=== PATIENT | female | born 1995 | race African-American/Black ===

== ENCOUNTER 2018-03-14 12:22 | Emergency (ER) | payer SELFPAY ==
[2018-03-14] MEDS ORDERED: ONDANSETRON 4 MG/2 ML VIAL ONE (13:04)
[2018-03-14] MEDS ORDERED: NA CHLORIDE 0.9% 500 ML ONE (13:05)
[2018-03-14 13:35] LABS: Bicarbonate 26 mEq/L (21-31); Glucose Level 172 mg/dL (65-120); Lipase 21 U/L (22-51); Potassium 3.5 mEq/L (3.6-5.0); Sodium Level 136 mEq/L (135-145)
[2018-03-14 13:42] LABS: ALT/SGPT 20 IU/L (10-60); AST/SGOT 20 IU/L (10-42); Albumin 3.8 g/dL (3.2-5.5); Alkaline Phosphatase 63 IU/L (42-121); BUN Blood Urea Nitrogen 7 mg/dL (6-20); Bilirubin Direct 0.1 mg/dL (0-0.2); Bilirubin Total 0.5 mg/dL (0.3-1.2); Protein, Total 7.4 g/dL (6.0-8.3)
--- NOTE | 2018-03-14 13:56 | RAD REPORT ---
EXAM DESCRIPTION: US - Abdomen Exam Limited - 03/14/2018 1:10 pm CLINICAL HISTORY: Abdominal pain COMPARISON: None. FINDINGS: No gallstones, sludge or other abnormalities within the gallbladder lumen. There is no wal l thickening or pericholecystic fluid. Gallbladder is not fully distended. Patient was not fully fast ing for the examination. No common duct stone or biliary tree dilatation identified. IMPRESSION: Normal gallbladder and biliary tree ultrasound.
[2018-03-14 13:59] LABS: Absolute Lymphocytes (CBC) 1.6 K/uL (0.7-4.9); Absolute Monocytes 0.5 K/uL (0.1-1.3); Absolute Neutrophil 6.9 K/uL (1.8-8.0); Basophils % 0.5 % (0-1.3); Eosinophils % 1.7 % (0-4.4); Hematocrit 41.2 % (36.0-45.0); Lymphocytes % 17.7 % (15.3-44.8); MCH 26.2 pg (27.0-35.0); MCV 80.6 fL (80-100); MPV 9.2 fL (7.6-11.3); Monocytes % 5.4 % (3.3-12.3); RBC Red Blood Cell Count 5.11 M/uL (3.86-4.86)
--- NOTE | 2018-03-14 14:06 | RAD REPORT ---
EXAM DESCRIPTION: RAD - Chest Single View - 03/14/2018 1:31 pm CLINICAL HISTORY: Chest pain, back pain COMPARISON: None. TECHNIQUE: AP portable chest image was obtained 1322 hours . FINDINGS: Lungs are clear. Heart and vasculature are normal. No measurable pleural effusion and no p neumothorax. No gross bony abnormality seen. No acute aortic findings suspected. IMPRESSION: No acute cardiopulmonary process.
[2018-03-14 15:05] LABS: Urine Bacteria NONE SEEN /HPF (<20)
[2018-03-14 15:05] LABS: Urine Blood 3+ (NEG); Urine Glucose NEGATIVE (NEG); Urine Protein 1+ (NEG); Urine pH 8.5 (5.0-7.0)
[2018-03-14 15:06] LABS: Urine Amorphous Sediment 2+ /HPF (NONE SEEN); Urine Culture Reflex Order NOT NEEDED
--- NOTE | 2018-03-14 15:26 | RAD REPORT ---
EXAM DESCRIPTION: CT - Stone Protocol - 03/14/2018 3:10 pm CLINICAL HISTORY: Hematuria, abdominal pain COMPARISON: None. TECHNIQUE: Axial 5 mm thick images were obtained without oral or IV contrast. The [id number] span s the entirety of the system partially obscuring uppermost abdomen and lung bases. All CT scans are performed using dose optimization technique as appropriate and may include automated exposure control or mA/KV adjustment according to patient size. FINDINGS: No hydronephrosis is present and no obstructing ureteral calculi. No suspicious renal mass es. Isodense masses and pyelonephritis are not excluded on a stone protocol CT scan. Urinary bladder is contracted. No bladder calculi. Uterus and ovaries show no suspicious findings. Imaged portions of the liver, spleen and pancreas show no suspicious findings on non-contrast imaging . No gallbladder or biliary tree abnormality identified. No significant adrenal finding. No suspicious bowel findings. Appendix is normal. No active GI process seen. Patient does have alvin us small central and right lower quadrant mesenteric lymph nodes. No mass or bulky lymphadenopathy. Patient has a very small 2 cm x 1 cm umbilical hernia containing on ly fat. No congestion or edema. No free air, free fluid or inflammatory stranding. No significant bony abnormality. IMPRESSION: No hydronephrosis, calculus or other abnormality to explain hematuria. Isodense masses and pyelonephritis are not excluded on stone protocol technique. Multiple small mesenteric lymph nodes. These are nonspecific and patient may be a symptomatic. Minima l mesenteric adenitis or nonspecific enteritis would be possible.
--- NOTE | 2018-03-14 15:36 | EDPHYS ---
Physician Documentation [facility] Name: Elysia Dao Age: 22 yrs Sex: Female : 1995 Arrival Date: 03/14/2018 Time: 12:27 Bed 13 Private MD: None, None ED Physician Nigel Almonte HPI: 03/14 13:57 This 22 yrs old Black Female presents to ER via Ambulatory with complaints of Chest rn Pain, Abdominal Pain, Dizziness. 13:57 The patient or guardian reports chest pain that is located primarily in the chest rn diffusely. The pain does not radiate. Associated signs and symptoms: Pertinent positives: abdominal pain, dizziness, nausea, vomiting. The chest pain is described as aching. Duration: The patient or guardian reports multiple episodes, that are intermittent. Modifying factors: The symptoms are alleviated by nothing. the symptoms are aggravated by nothing. Severity of pain: At its worst the pain was mild in the emergency department the pain is unchanged. The patient has not experienced similar symptoms in the past. Reports began last night with chest pain, now having upper abd pain, nausea/vomiting/diarrhea, feels dizzy, no fever. . 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 - Social history:: Smoking status: Patient uses tobacco products, smokes one-half pack cigarettes per day. - Family history:: not pertinent. - Hospitalizations: : No recent hospitalization is reported. ROS: 13:57 Constitutional: Negative for fever, chills, and weight loss, Eyes: Negative for injury, rn pain, redness, and discharge, Neck: Negative for injury, pain, and swelling, Cardiovascular: Negative for palpitations, and edema, Respiratory: Negative for wheezing, and pleuritic chest pain, Abdomen/GI: Negative for constipation MS/Extremity: Negative for injury and deformity, Skin: Negative for injury, rash, and discoloration, Neuro: Negative for numbness, tingling, and seizure Exam: 13:57 Constitutional: This is a well developed, well nourished patient who is awake, alert, rn and in no acute distress. Sitting upright, texting. Head/Face: Normocephalic, atraumatic. Eyes: Pupils equal round and reactive to light, extra-ocular motions intact. Lids and lashes normal. Conjunctiva and sclera are non-icteric and not injected. Cornea within normal limits. Periorbital areas with no swelling, redness, or edema. Neck: Trachea midline, no thyromegaly or masses palpated, and no cervical lymphadenopathy. Supple, full range of motion without nuchal rigidity, or vertebral point tenderness. No Meningismus. Chest/axilla: Normal chest wall appearance and motion. Nontender with no deformity. No lesions are appreciated. Cardiovascular: Regular rate and rhythm with a normal S1 and S2. No gallops, murmurs, or rubs. Normal PMI, no JVD. No pulse deficits. Respiratory: Lungs have equal breath sounds bilaterally, clear to auscultation and percussion. No rales, rhonchi or wheezes noted. No increased work of breathing, no retractions or nasal flaring. Abdomen/GI: soft, non-tender, no rebound/guarding Skin: Warm, dry with normal turgor. Normal color with no rashes, no lesions, and no evidence of cellulitis. MS/ Extremity: Pulses equal, no cyanosis. Neurovascular intact. Full, normal range of motion. Equal circumference. Neuro: Awake and alert, GCS 15, oriented to person, place, time, and situation. Cranial nerves II-XII grossly intact. Motor strength 5/5 in all extremities. Sensory grossly intact. Cerebellar exam normal. Normal gait. Vital Signs: 12:35 BP 151 / 92; Pulse 97; Resp 18; Temp 97.9; Pulse Ox 98% on R/A; Weight 140.61 kg; aj Height 5 ft. 9 in. (175.26 cm); 13:35 BP 148 / 94; Pulse 92; Resp 18; Pulse Ox 100% on R/A; hj 14:35 BP 145 / 89; Pulse 91; Resp 18; Pulse Ox 100% on R/A; hj 15:16 BP 100 / 79; Pulse 89; Resp 18; Pulse Ox 100% on R/A; hj 12:35 Body Mass Index 45.78 (140.61 kg, 175.26 cm) aj MDM: 12:39 Patient medically screened. rn 15:34 Differential diagnosis: costochondritis, gastritis, gastroesophageal reflux disease rn (GERD), pleurisy, pneumonia. Data reviewed: vital signs, nurses notes, lab test result(s), radiologic studies, CT scan, plain films, and as a result, I will discharge patient. Counseling: I had a detailed discussion with the patient and/or guardian regarding: the historical points, exam findings, and any diagnostic results supporting the discharge/admit diagnosis, lab results, radiology results, the need for outpatient follow up, to return to the emergency department if symptoms worsen or persist or if there are any questions or concerns that arise at home. Response to treatment: the patient's symptoms have mildly improved after treatment, and as a result, I will discharge patient. Special discussion: Based on the patient's Hx, exam, and Dx evaluation, there is no indication for emergent surgery or inpatient Tx. It is understood by the patient/guardian that if the Sx's persist or worsen they need to return immediately for re-evaluation. I discussed with the patient/guardian in detail that at this point there is no indication for admission to the hospital. It is understood, however, that if the symptoms persist or worsen the patient needs to return immediately for re-evaluation. 03/14 12:45 Order name: Basic Metabolic Panel; Complete Time: 14:12 03/14 12:45 Order name: CBC with Diff; Complete Time: 14:12 03/14 12:45 Order name: Creatinine for Radiology; Complete Time: 14:12 03/14 12:45 Order name: Hepatic Function; Complete Time: 14:12 03/14 12:45 Order name: Lipase; Complete Time: 14:12 03/14 12:45 Order name: Urine Microscopic Only; Complete Time: 15:10 03/14 12:45 Order name: Troponin (emerg Dept Use Only); Complete Time: 14:12 03/14 12:45 Order name: D-Dimer; Complete Time: 14:12 03/14 12:45 Order name: US Abdomen Limited; Complete Time: 14:12 03/14 12:45 Order name: XRAY Chest (1 view); Complete Time: 14:12 03/14 14:57 Order name: CT Stone Protocol; Complete Time: 15:34 rn 03/14 14:59 Order name: Urine Dipstick--Ancillary (enter results); Complete Time: 15:10 bd 03/14 14:59 Order name: Urine --Ancillary (enter results); Complete Time: 15:10 bd 03/14 12:45 Order name: Urine Test (obtain specimen); Complete Time: 14:55 rn 03/14 12:45 Order name: IV Saline Lock; Complete Time: 13:02 rn 03/14 12:45 Order name: Labs collected and sent; Complete Time: 13:02 rn 03/14 12:45 Order name: Urine Dipstick-Ancillary (obtain specimen); Complete Time: 14:55 rn 03/14 12:45 Order name: EKG; Complete Time: 12:46 rn 03/14 12:45 Order name: EKG - Nurse/Tech; Complete Time: 13:02 rn Administered Medications: 13:00 Drug: Zofran 4 mg Route: IVP; Site: right antecubital; hj 13:09 Follow up: Response: No adverse reaction hj 13:00 Drug: NS 0.9% 500 ml Route: IV; Rate: bolus; Site: right antecubital; hj 13:09 Follow up: IV Status: Completed infusion hj Disposition: 03/14/18 15:35 Discharged to Home. Impression: Enteritis, Nonspecific mesenteric lymphadenitis. - Condition is Stable. - Discharge Instructions: Mesenteric Adenitis, Pediatric, Viral Gastroenteritis. - Prescriptions for Zofran ODT 4 mg Oral tablet,disintegrating - place 1 tablet by TRANSLINGUAL route every 8-10 hours As needed; 20 tablet. - Work release form, Medication Reconciliation Form, Thank You Letter, Antibiotic Education, Prescription Opioid Use form. - Follow up: Private Physician; When: As needed; Reason: Recheck today's complaints, Re-evaluation by your physician. - Problem is new. - Symptoms have improved. Signatures: Dispatcher [employer] Bri Sanabria RN RN aj Nieto, Roman, MD MD rn Joaquin, Henry, RN RN hj Corrections: (The following items were deleted from the chart) 15:50 15:35 03/14/2018 15:35 Discharged to Home. Impression: Enteritis; Nonspecific hj mesenteric lymphadenitis. Condition is Stable. Forms are Medication Reconciliation Form, Thank You Letter, Antibiotic Education, Prescription Opioid Use. Follow up: Private Physician; When: As needed; Reason: Recheck today's complaints, Re-evaluation by your physician. Problem is new. Symptoms have improved. rn
--- NOTE | 2018-03-14 15:36 | ER ---
Nurse's Notes [facility] Name: Elysia Dao Age: 22 yrs Sex: Female : 1995 Arrival Date: 03/14/2018 Time: 12:27 Bed 13 Private MD: None, None Diagnosis: Enteritis;Nonspecific mesenteric lymphadenitis Presentation: 03/14 12:34 Presenting complaint: Patient states: Chest pain, dizziness and low back pain that aj started last night. Made worse with deep breathing. Transition of care: patient was not received from another setting of care. Onset of symptoms was March 13, 2018. Care prior to arrival: None. 12:34 Method Of Arrival: Ambulatory aj 12:34 Acuity: CARRI 3 aj 12:34 Initial Sepsis Screen: Does the patient meet any 2 criteria? No. Patient's initial hj sepsis screen is negative. Does the patient have a suspected source of infection? No. Patient's initial sepsis screen is negative. Triage Assessment: 12:35 General: Appears in no apparent distress. comfortable, Behavior is calm, cooperative, aj appropriate for age. Pain: Complains of pain in back and chest. Neuro: Level of Consciousness is awake, alert, obeys commands, Oriented to person, place, time, situation, Appropriate for age. Cardiovascular: Reports chest pain, shortness of breath, Capillary refill < 3 seconds in bilateral fingers Patient's skin is warm and dry. Respiratory: Airway is patent Respiratory effort is even, unlabored, Respiratory pattern is regular, symmetrical. Derm: Skin is intact, is healthy with good turgor, Skin is pink, warm \T\ dry. normal. Musculoskeletal: Reports pain in low back area and mid back area. DBA: 12:35 LMP N/A - Irregular menses aj Historical: - Allergies: 12:35 PENICILLINS; aj 12:35 Amoxicillin; aj - Home Meds: 12:35 Metformin Oral [Active]; control [Active]; aj - PMHx: 12:35 Hypertension; PCOS; aj - PSHx: 12:35 None; aj - Immunization history:: Adult Immunizations up to date. - Social history:: Smoking status: Patient uses tobacco products, smokes one-half pack cigarettes per day. - Family history:: not pertinent. - Hospitalizations: : No recent hospitalization is reported. Screenin:34 Abuse screen: Denies threats or abuse. Denies injuries from another. Nutritional hj screening: No deficits noted. Tuberculosis screening: No symptoms or risk factors identified. Fall Risk None identified. Assessment: 12:34 Pain: Pain does not radiate. Pain began. hj 12:34 General: Appears in no apparent distress. uncomfortable, obese, Behavior is calm, hj cooperative, appropriate for age. Neuro: Level of Consciousness is awake, alert, obeys commands, Oriented to person, place, time, situation, Appropriate for age. Cardiovascular: Reports chest pain, Capillary refill < 3 seconds Patient's skin is warm and dry. Respiratory: Airway is patent Respiratory effort is even, unlabored, Respiratory pattern is regular, symmetrical. GI: No signs and/or symptoms were reported involving the gastrointestinal system. : No signs and/or symptoms were reported regarding the genitourinary system. EENT: No signs and/or symptoms were reported regarding the EENT system. Derm: No signs and/or symptoms reported regarding the dermatologic system. Musculoskeletal: No signs and/or symptoms reported regarding the musculoskeletal system. 13:35 Reassessment: Patient and/or family updated on plan of care and expected duration. Pain hj level reassessed. Patient is alert, oriented x 3, equal unlabored respirations, skin warm/dry/pink. Patient denies pain at this time. 14:45 Reassessment: Patient and/or family updated on plan of care and expected duration. Pain hj level reassessed. Patient is alert, oriented x 3, equal unlabored respirations, skin warm/dry/pink. awaiting results;. 15:16 Reassessment: Patient and/or family updated on plan of care and expected duration. Pain hj level reassessed. Patient is alert, oriented x 3, equal unlabored respirations, skin warm/dry/pink. awaiting POC;. Vital Signs: 12:35 BP 151 / 92; Pulse 97; Resp 18; Temp 97.9; Pulse Ox 98% on R/A; Weight 140.61 kg; aj Height 5 ft. 9 in. (175.26 cm); 13:35 BP 148 / 94; Pulse 92; Resp 18; Pulse Ox 100% on R/A; hj 14:35 BP 145 / 89; Pulse 91; Resp 18; Pulse Ox 100% on R/A; hj 15:16 BP 100 / 79; Pulse 89; Resp 18; Pulse Ox 100% on R/A; hj 12:35 Body Mass Index 45.78 (140.61 kg, 175.26 cm) ED Course: 12:27 Patient arrived in ED. mr 12:27 None, None is Private Physician. mr 12:34 No provider procedures requiring assistance completed. Patient maintains SpO2 hj saturation greater than 95% on room air. 12:35 Triage completed. aj 12:35 Arm band placed on right wrist. Patient placed in an exam room. aj 12:35 Patient has correct armband on for positive identification. Placed in gown. Bed in low hj position. Call light in reach. Side rails up X 1. radius corner machine operator on. Pulse ox on. NIBP on. 12:39 Nigel Almonte MD is Attending Physician. rn 12:45 Pipe Salinas, EMILIE is Primary Nurse. hj 12:58 US Abdomen Limited In Process Unspecified. EDMS 12:58 Ultrasound completed. hr 13:07 EKG done, by software support technician. reviewed by Nigel Almonte MD. 13:27 X-ray completed. Portable x-ray completed in exam room. Patient tolerated procedure sw well. 13:31 XRAY Chest (1 view) In Process Unspecified. EDMS 15:[address] via wheelchair. 2 15:10 CT completed. Patient tolerated procedure well. Patient moved back from CT. 2 15:10 CT Stone Protocol In Process Unspecified. EDMS 15:50 IV discontinued, intact, bleeding controlled, No redness/swelling at site. Pressure hj dressing applied. Administered Medications: 13:00 Drug: Zofran 4 mg Route: IVP; Site: right antecubital; hj 13:09 Follow up: Response: No adverse reaction hj 13:00 Drug: NS 0.9% 500 ml Route: IV; Rate: bolus; Site: right antecubital; hj 13:09 Follow up: IV Status: Completed infusion hj Outcome: 15:35 Discharge ordered by . rn 15:50 Discharged to home ambulatory. hj 15:50 Condition: stable 15:50 Discharge instructions given to patient, Instructed on discharge instructions, follow up and referral plans. medication usage, Demonstrated understanding of instructions, follow-up care, medications, Prescriptions given X 1. 15:50 Patient left the ED. hj Signatures: Dispatcher [employer] EDMS PurdyBri RN RN aj Rivera, Maria mr Shan, Nigel Lazcano MD MD rn Harrell, Venessa vh Warren, Shannon sw Joaquin, Henry, RN RN hj McGuire, Victoria [facility] Corrections: (The following items were deleted from the chart) 15:21 15:16 BP 150 / 90; Pulse 95bpm; Resp 18bpm; Pulse Ox 100% RA; julio kim
--- NOTE | 2018-03-14 16:20 | EKG ---
Test Date: 2018-03-14 Test Time: 12:57:51 [employer] Examiner: GARY MEASUREMENT RESULTS: Intervals: Rate: 84 MT: 134 QRSD: 86 QT: 362 QTc: 427 [place]: P: 40 MT: 134 QRS: 31 T: 13 INTERPRETIVE STATEMENTS: Normal sinus rhythm with sinus arrhythmia Normal ECG No previous ECG available for comparison Electronically Signed On 03-14-18 16:19:03 CDT by Butch Banda
== END 2018-03-14 15:50 | disposition home or self-care (01) ==
LOC: ER 12:22
DX: K52.9 Noninfective gastroenteritis and colitis, unspecified (principal); I88.0 Nonspecific mesenteric lymphadenitis; I10 Essential (primary) hypertension; F17.210 Nicotine dependence, cigarettes, uncomplicated; Z88.0 Allergy status to penicillin
CPT/HCPCS: 36415; 71045; 74176; 76377; 76705; 80048; 80076; 81003; 81015; 81025; 83690; 84484; 85025; 85379; 93005; 96374; 99285; J2405

== ENCOUNTER 2018-06-14 15:42 | Emergency (ER) | payer SELFPAY ==
[2018-06-14 16:20] LABS: Urine Blood NEGATIVE (NEG); Urine Glucose NEGATIVE (NEG); Urine Protein NEGATIVE (NEG)
[2018-06-14] MEDS ORDERED: METOCLOPRAMIDE 10 MG/2mL INJ ONE (16:32)
[2018-06-14] MEDS ORDERED: NA CHLORIDE 0.9% 1,000 ML ONE ×2 (16:33→17:50)
[2018-06-14] MEDS ORDERED: ONDANSETRON 4 MG/2 ML VIAL ONE (16:33)
[2018-06-14 16:59] LABS: Absolute Lymphocytes (CBC) 1.3 K/uL (0.7-4.9); Absolute Monocytes 1.2 K/uL (0.1-1.3); Absolute Neutrophil 18.1 K/uL (1.8-8.0); Basophils % 0.4 % (0-1.3); Eosinophils % 0.1 % (0-4.4); Hematocrit 40.7 % (36.0-45.0); Lymphocytes % 6.4 % (15.3-44.8); MCV 79.8 fL (80-100); MPV 8.2 fL (7.6-11.3); Monocytes % 5.9 % (3.3-12.3)
[2018-06-14 17:06] LABS: Urine Bacteria <20 /HPF (<20); Urine Culture Reflex Order REFLEXED; Urine RBC <5 /HPF (NONE SEEN)
[2018-06-14 17:07] LABS: Urine Amorphous Sediment 2+ /HPF (NONE SEEN)
--- NOTE | 2018-06-14 17:10 | EKG ---
Test Date: 2018-06-14 Test Time: 16:23:00 Trade Analyst: HECTOR MEASUREMENT RESULTS: Intervals: Rate: 107 NV: 130 QRSD: 82 QT: 330 QTc: 440 [place]: P: 31 NV: 130 QRS: 40 T: 28 INTERPRETIVE STATEMENTS: Sinus tachycardia Otherwise normal ECG Compared to ECG 03/14/2018 12:57:51 Sinus rhythm no longer present Sinus arrhythmia no longer present Electronically Signed On 06-14-18 17:10:12 CDT by Butch Banda
[2018-06-14 17:19] LABS: Albumin 3.6 g/dL (3.4-5.0); Bilirubin Direct 0.2 mg/dL (0-0.2); Bilirubin Total 1.1 mg/dL (0.2-1.0); Magnesium 2.1 mg/dL (1.8-2.4); Protein, Total 8.1 g/dL (6.4-8.2)
--- NOTE | 2018-06-14 17:33 | EDPHYS ---
Physician Documentation [facility] Name: Elysia Dao Age: 23 yrs Sex: Female : 1995 Arrival Date: 06/14/2018 Time: 15:45 Bed 24 Private MD: None, None ED Physician Justin Morin HPI: 06/14 16:05 This 23 yrs old Black Female presents to ER via Ambulatory with complaints of Dizziness.cp 16:05 The patient presents with dizziness, lightheadedness. cp 16:05 Onset: The symptoms/episode began/occurred last night. cp 16:05 Context: occurred while the patient was standing. Associated signs and symptoms: cp Pertinent positives: headache, numbness, vomiting, diarrhea, Pertinent negatives: abdominal pain, chest pain, confusion, focal weakness, syncope. Patient's baseline: Neuro: alert and fully oriented, Motor: no deficits, Ambulation: walks without assistance, Speech: normal. 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 - Social history:: Smoking status: Patient uses tobacco products, smokes one-half pack cigarettes per day. - Ebola Screening: : Patient negative for fever greater than or equal to 101.5 degrees Fahrenheit, and additional compatible Ebola Virus Disease symptoms Patient denies exposure to infectious person Patient denies travel to an Ebola-affected area in the 21 days before illness onset No symptoms or risks identified at this time. ROS: 16:10 Constitutional: Positive for chills, Negative for fever, poor PO intake. cp 16:10 Eyes: Negative for injury, pain, redness, and discharge. cp 16:10 ENT: Negative for drainage from ear(s), ear pain, sore throat, difficulty swallowing, difficulty handling secretions. 16:10 Cardiovascular: Negative for chest pain, edema, palpitations. 16:10 Respiratory: Negative for cough, wheezing. 16:10 Abdomen/GI: Positive for nausea, vomiting, and diarrhea, Negative for abdominal pain, constipation, anorexia, black/tarry stool, rectal bleeding. 16:10 Back: Negative for radiated pain. 16:10 : Negative for pelvic pain, flank pain, difficulty urinating, vaginal bleeding, vaginal discharge. 16:10 Skin: Negative for cellulitis, rash. 16:10 Neuro: Positive for dizziness, headache, tingling, Negative for altered mental status, speech changes, weakness. 16:10 All other systems are negative. Exam: 16:15 Constitutional: The patient appears in no acute distress, alert, awake, non-toxic, well cp developed, well nourished, obese. 16:15 Head/Face: Normocephalic, atraumatic. cp 16:15 Eyes: Pupils equal round and reactive to light, extra-ocular motions intact. Lids and lashes normal. Conjunctiva and sclera are non-icteric and not injected. Cornea within normal limits. Periorbital areas with no swelling, redness, or edema. ENT: Nares patent. No nasal discharge, no septal abnormalities noted. Tympanic membranes are normal and external auditory canals are clear. Oropharynx with no redness, swelling, or masses, exudates, or evidence of obstruction, uvula midline. Mucous membranes moist. Neck: Trachea midline, no thyromegaly or masses palpated, and no cervical lymphadenopathy. Supple, full range of motion without nuchal rigidity, or vertebral point tenderness. No Meningismus. Chest/axilla: Normal chest wall appearance and motion. Nontender with no deformity. No lesions are appreciated. 16:15 Cardiovascular: Rate: tachycardic, Rhythm: regular, Edema: is not appreciated, JVD: is not appreciated. 16:15 Respiratory: the patient does not display signs of respiratory distress, Respirations: normal, no use of accessory muscles, no retractions, no splinting, no tachypnea, labored breathing, is not present, Breath sounds: are clear throughout, no decreased breath sounds, no stridor, no wheezing. 16:15 Abdomen/GI: Inspection: obese Bowel sounds: active, all quadrants, Palpation: abdomen is soft and non-tender, in all quadrants, rebound tenderness, is not appreciated, voluntary guarding, is not appreciated, involuntary guarding, is not appreciated. 16:15 Back: pain, is absent, ROM is normal. 16:15 Skin: cellulitis, is not appreciated, no rash present. 16:15 Neuro: Orientation: to person, place \T\ time. Mentation: lucid, able to follow commands, Cerebellar function: is grossly normal, Motor: moves all fours, strength is normal, Sensation: is normal. 16:30 ECG was reviewed by the Attending Physician. cp Vital Signs: 16:08 BP 112 / 83; Pulse 120; Resp 16; Pulse Ox 100% on R/A; Weight 136.08 kg; Height 5 ft. 9 iw in. (175.26 cm); Pain 7/10; 16:39 BP 110 / 84; Pulse 106; Resp 20; Pulse Ox 100% on R/A; aj 17:42 BP 129 / 69 Supine; Pulse 105; Resp 18; Pulse Ox 100% on R/A; aj 17:42 BP 128 / 80 Sitting; Pulse 110; Resp 18; Pulse Ox 100% on R/A; aj 18:44 BP 129 / 75; Pulse 118; Resp 18; Pulse Ox 100% on R/A; aj 16:08 Body Mass Index 44.30 (136.08 kg, 175.26 cm) iw MDM: 16:01 Patient medically screened. cp 17:00 Differential diagnosis: idiopathic dizziness, UTI, dehydration, cardiac arrythmia, cp electrolyte abnormality. 17:30 Data reviewed: vital signs, nurses notes, lab test result(s), EKG. 17:30 Test interpretation: by ED physician or midlevel provider: ECG. Response to treatment: cp the patient's symptoms have mildly improved after treatment, and as a result, I will discharge patient. 06/14 16:17 Order name: Urine Dipstick--Ancillary (enter results); Complete Time: 16:21 ag 06/14 17:06 Interpretation: Normal except: UESTR 1+. cp 06/14 16:17 Order name: Urine --Ancillary (enter results); Complete Time: 16:21 ag 06/14 16:23 Order name: Urine Microscopic Only; Complete Time: 17:14 cp 06/14 17:15 Interpretation: Normal except: UWBC 10-20; SQEPI 10-20; AMORPH 2+. cp 06/14 16:23 Order name: CBC with Diff; Complete Time: 16:14 cp 06/14 17:15 Interpretation: Normal except: WBC 20.8; RBC 5.10; MCV 79.8; MCH 26.0; DI% 87.2; LYM% cp 6.4; NEUT A 18.1. 06/14 16:23 Order name: BMP; Complete Time: 17:22 cp 06/14 17:22 Interpretation: Normal except: GFR 85. cp 06/14 16:23 Order name: Amylase, Serum; Complete Time: 17:22 cp 06/14 16:23 Order name: Creatinine for Radiology; Complete Time: 17:06 cp 06/14 16:23 Order name: Hepatic Function; Complete Time: 17:22 cp 06/14 17:22 Interpretation: Normal except: AST 13; BILIT 1.1; GLOB 4.5; A/G 0.8. cp 06/14 16:23 Order name: Lipase; Complete Time: 17:22 cp 06/14 16:23 Order name: Magnesium; Complete Time: 17:22 cp 06/14 17:08 Order name: Urine Culture EDMS 06/14 16:08 Order name: Orthostatics; Complete Time: 17:41 cp 06/14 16:09 Order name: Urine Dipstick-Ancillary (obtain specimen); Complete Time: 16:23 cp 06/14 16:09 Order name: Urine Test (obtain specimen); Complete Time: 16:23 cp 06/14 16:23 Order name: EKG; Complete Time: 16:24 cp 06/14 16:23 Order name: EKG - Nurse/Tech; Complete Time: 17:52 cp 06/14 16:23 Order name: IV Saline Lock; Complete Time: 16:37 cp 06/14 16:23 Order name: Labs collected and sent; Complete Time: 16:37 cp 06/14 17:25 Order name: PO challenge; Complete Time: 17:52 cp EC:30 Rate is 107 beats/min. Rhythm is regular. CO interval is normal. QRS interval is cp normal. QT interval is normal. No ST changes noted. Interpreted by me. Reviewed by me. Administered Medications: 16:37 Drug: Reglan 10 mg Route: IVP; Site: right antecubital; aj 06/15 12:38 Follow up: Response: Nausea is decreased aj 06/14 16:37 Drug: Zofran 4 mg Route: IVP; Site: right antecubital; aj 17:22 Follow up: Response: Nausea is decreased aj 16:37 Drug: NS 0.9% 1000 ml Route: IV; Rate: 1 bolus; Site: right antecubital; aj 17:30 Follow up: Response: No adverse reaction; IV Status: Completed infusion; IV Intake: aj 1000ml 17:51 Drug: NS 0.9% 1000 ml Route: IV; Rate: 1 bolus; Site: right antecubital; la1 18:45 Follow up: Response: No adverse reaction; IV Status: Completed infusion; IV Intake: aj 1000ml 17:51 Drug: Rocephin 1 grams Route: IV; Rate: bolus; Site: right antecubital; la1 18:45 Follow up: Response: No adverse reaction; IV Status: Completed infusion; IV Intake: 25mlaj Disposition: 06/15 15:49 Co-signature as Attending Physician, Justin Morin MD. scooby Disposition: 06/14/18 17:32 Discharged to Home. Impression: Dizziness and giddiness, Urinary tract infection, site not specified. - Condition is Stable. - Discharge Instructions: Dizziness, Urinary Tract Infection, Adult. - Prescriptions for Meclizine 25 mg Oral Tablet - take 1 tablet by ORAL route every 8 hours As needed; 30 tablet. Zofran 4 mg Oral Tablet - take 1 tablet by ORAL route every 12 hours As needed; 20 tablet. Bactrim DS 800- 160 mg Oral Tablet - take 1 tablet by ORAL route every 12 hours for 7 days; 14 tablet. - Medication Reconciliation Form, Thank You Letter, Antibiotic Education, Prescription Opioid Use form. - Follow up: Private Physician; When: 1 - 2 days; Reason: Recheck today's complaints. - Problem is new. - Symptoms have improved. Signatures: Dispatcher [employer] Bri Sanabria RN RN aj Williams, Irene, RN RN iw Attema, Lee, RN RN la1 Sachin Hodge PA PA cp Starr, Gregory, MD MD gs Corrections: (The following items were deleted from the chart) 06/14 17:15 17:14 Normal except: WBC 20.8; RBC 5.10; MCV 79.8; MCH 26.0; DI% 87.2; LYM% 6.4. cp cp 18:46 17:32 06/14/2018 17:32 Discharged to Home. Impression: Dizziness and giddiness; Urinary aj tract infection, site not specified. Condition is Stable. Forms are Medication Reconciliation Form, Thank You Letter, Antibiotic Education, Prescription Opioid Use. Follow up: Private Physician; When: 1 - 2 days; Reason: Recheck today's complaints. Problem is new. Symptoms have improved. cp 06/15 16:06/13 16:05 This 23 yrs old Black Female presents to ER via Ambulatory with complaints cp of Dizziness. cp 06/15 16:06/13 16:05 The patient presents with dizziness, feeling faint, lightheadedness, cp cp 06/15 16:06/13 16:05 Onset: The symptoms/episode began/occurred this morning, cp cp 06/15 16:06/13 16:05 Context: occurred while the patient was standing, just prior to the episode cp the patient experienced no apparent symptoms, cp
--- NOTE | 2018-06-14 17:33 | ER ---
Nurse's Notes [facility] Name: Elysia Dao Age: 23 yrs Sex: Female : 1995 Arrival Date: 06/14/2018 Time: 15:45 Bed 24 Private MD: None, None Diagnosis: Dizziness and giddiness;Urinary tract infection, site not specified Presentation: 06/14 16:05 Presenting complaint: Patient states: feels light headed when she stands up, also has iw headache, fingers feel numb, has chills, symptoms started last night, also had one episode of vomiting and diarrhea this morning, also "feels hot" when she urinates. Transition of care: patient was not received from another setting of care. Onset of symptoms was June 13, 2018. Risk Assessment: Do you want to hurt yourself or someone else? Patient reports no desire to harm self or others. Initial Sepsis Screen: Does the patient meet any 2 criteria? No. Patient's initial sepsis screen is negative. Does the patient have a suspected source of infection? No. Patient's initial sepsis screen is negative. Care prior to arrival: None. 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 - Social history:: Smoking status: Patient uses tobacco products, smokes one-half pack cigarettes per day. - Ebola Screening: : Patient negative for fever greater than or equal to 101.5 degrees Fahrenheit, and additional compatible Ebola Virus Disease symptoms Patient denies exposure to infectious person Patient denies travel to an Ebola-affected area in the 21 days before illness onset No symptoms or risks identified at this time. Screenin:37 Abuse screen: Denies threats or abuse. Denies injuries from another. Nutritional aj screening: No deficits noted. Tuberculosis screening: No symptoms or risk factors identified. Fall Risk None identified. Assessment: 16:37 General: Appears in no apparent distress. comfortable, obese, Behavior is calm, aj cooperative, appropriate for age. Pain: Complains of pain in face. Neuro: Level of Consciousness is awake, alert, obeys commands, Oriented to person, place, time, situation, Appropriate for age Furnace Fitter are equal bilaterally Moves all extremities. Full function Gait is steady, Speech is normal, Facial symmetry appears normal, Reports dizziness, headache in entire. Respiratory: Airway is patent Respiratory effort is even, unlabored, Respiratory pattern is regular, symmetrical. Derm: Skin is intact, is healthy with good turgor, Skin is pink, warm \\T\\ dry. normal. 18:44 Reassessment: Patient appears in no apparent distress at this time. No changes from aj previously documented assessment. Patient and/or family updated on plan of care and expected duration. Pain level reassessed. Patient is alert, oriented x 3, equal unlabored respirations, skin warm/dry/pink. Patient states feeling better. Patient states symptoms have improved. Vital Signs: 16:08 BP 112 / 83; Pulse 120; Resp 16; Pulse Ox 100% on R/A; Weight 136.08 kg; Height 5 ft. 9 iw in. (175.26 cm); Pain 7/10; 16:39 BP 110 / 84; Pulse 106; Resp 20; Pulse Ox 100% on R/A; aj 17:42 BP 129 / 69 Supine; Pulse 105; Resp 18; Pulse Ox 100% on R/A; aj 17:42 BP 128 / 80 Sitting; Pulse 110; Resp 18; Pulse Ox 100% on R/A; aj 18:44 BP 129 / 75; Pulse 118; Resp 18; Pulse Ox 100% on R/A; aj 16:08 Body Mass Index 44.30 (136.08 kg, 175.26 cm) ED Course: 15:45 Patient arrived in ED. mr 15:45 None, None is Private Physician. mr 15:59 Bri Purdy, RN is Primary Nurse. aj 16:01 Sachin Hodge PA is PHCP. cp 16:01 Justin Morin MD is Attending Physician. cp 16:07 Triage completed. iw 16:08 Arm band placed on. iw 16:32 EKG done, by binder technician. dt2 16:37 Patient has correct armband on for positive identification. aj 16:37 Inserted saline lock: 20 gauge in right antecubital area, using aseptic technique. aj Blood collected. 16:39 Call light in reach. Side rails up X 1. Pulse ox on. NIBP on. Warm blanket given. aj 18:44 No provider procedures requiring assistance completed. IV discontinued, intact, aj bleeding controlled, No redness/swelling at site. Pressure dressing applied. Administered Medications: 16:37 Drug: Reglan 10 mg Route: IVP; Site: right antecubital; aj 06/15 12:38 Follow up: Response: Nausea is decreased aj 06/14 16:37 Drug: Zofran 4 mg Route: IVP; Site: right antecubital; aj 17:22 Follow up: Response: Nausea is decreased aj 16:37 Drug: NS 0.9% 1000 ml Route: IV; Rate: 1 bolus; Site: right antecubital; aj 17:30 Follow up: Response: No adverse reaction; IV Status: Completed infusion; IV Intake: aj 1000ml 17:51 Drug: NS 0.9% 1000 ml Route: IV; Rate: 1 bolus; Site: right antecubital; la1 18:45 Follow up: Response: No adverse reaction; IV Status: Completed infusion; IV Intake: aj 1000ml 17:51 Drug: Rocephin 1 grams Route: IV; Rate: bolus; Site: right antecubital; la1 18:45 Follow up: Response: No adverse reaction; IV Status: Completed infusion; IV Intake: 25mlaj Intake: 17:30 IV: 1000ml; Total: 1000ml. aj 18:45 IV: 25ml; Total: 1025ml. aj 18:45 IV: 1000ml; Total: 2025ml. aj Outcome: 17:32 Discharge ordered by MD. cp 18:44 Discharged to home ambulatory. aj 18:44 Condition: good 18:44 Discharge instructions given to patient, Instructed on discharge instructions, follow up and referral plans. medication usage, Demonstrated understanding of instructions, follow-up care, medications, Prescriptions given X 3. 18:46 Patient left the ED. aj Signatures: Bri Purdy RN RN aj Rivera, Maria mr Williams, Irene, Diego Bingham RN, RN RN la1 Sachin Hodge PA PA cp Teague, Danielle dt2 Corrections: (The following items were deleted from the chart) 18:44 17:42 BP 129 / 75; Pulse 118bpm; Resp 18bpm; Pulse Ox 100% RA; aj aj
[2018-06-14] MEDS ORDERED: CEFTRIAXONE/SWI 1gm 1 GM/10 ML SYR ONE (17:50)
[2018-06-14 19:40] LABS: Urine White Blood Cell Casts OK
[2018-06-14 19:41] LABS: Blood Morphology Comment NOT SEEN (NOT SEEN); Platelet Estimate ADEQ
== END 2018-06-14 18:46 | disposition home or self-care (01) ==
LOC: ER 15:42
DX: N39.0 Urinary tract infection, site not specified (principal); I10 Essential (primary) hypertension; F17.210 Nicotine dependence, cigarettes, uncomplicated; Z88.0 Allergy status to penicillin; Z88.1 Allergy status to other antibiotic agents
CPT/HCPCS: 36415; 80048; 80076; 81003; 81015; 81025; 82150; 83690; 83735; 85025; 87086; 87088; 93005; 96361; 96365; 96375; 99284; J0696; J2405; J2765; J7030

== ENCOUNTER 2018-12-04 18:43 | Emergency (ER) | payer SELFPAY ==
[2018-12-04] MEDS ORDERED: KETOROLAC 30 MG/ML INJ ONE (20:23)
[2018-12-04] MEDS ORDERED: CYCLOBENZAPRINE 10 MG TAB ONE (20:23)
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
--- NOTE | 2018-12-04 21:20 | RAD REPORT ---
EXAM DESCRIPTION: Caleb Rogers (2 Views)12/04/2018 9:00 pm CLINICAL HISTORY: Chest pain COMPARISON: February 2018 FINDINGS: The lungs appear clear of acute infiltrate. The heart is normal size IMPRESSION: No acute abnormalities displayed
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
== END 2018-12-04 22:16 | disposition home or self-care (01) ==
LOC: ER 18:43
DX: S00.81XA Abrasion of other part of head, initial encounter (principal); V47.6XXA Car passenger injured in collision with fixed or stationary object in traffic accident, initial encounter; I10 Essential (primary) hypertension; F17.210 Nicotine dependence, cigarettes, uncomplicated; Z88.0 Allergy status to penicillin; Z88.1 Allergy status to other antibiotic agents
CPT/HCPCS: 70450; 71046; 72125; 96372; 99284